=== PATIENT | male | born 1960 | race African-American/Black ===

== ENCOUNTER 2020-06-17 03:12 | Emergency (ER) | payer MEDICAID, OTHER ==
[~2020-06-17] VITALS: Ht 188 cm; Wt 94.7 kg
[~2020-06-17 03:12] MED LIST: ACYC-57 HOMEMEDPO; ASPI-496 HOMEMEDPO; CEPH-368 HOMEMEDPO; CLON0.2T10 HOMEMEDPO; HYDR-3240 HOMEMEDPO; IBUP200T49 HOMEMEDPO; METO-93 HOMEMEDPO; NITR0.4T41 HOMEMEDPO
[2020-06-17] MEDS ORDERED: SODIUM CHLORIDE FLUSH 10ML SYR IVF ONE (03:30)
[2020-06-17] MEDS ORDERED: ONDANSETRON 2MG/ML, 2ML IVPush ONE (03:30)
--- NOTE | 2020-06-17 03:30 | NUR ---
PT WIT C/O CHEST PAIN X A COUPLE WEEKS. SUBSTERNAL CHEST PRESSURE 6/10, ORTHOPNEA, +NAUSEA, DENIES SOB. HX OF NE. PT ATTACHED TO ALL MONITORS AND PIV PLACED.
[2020-06-17 03:53] LABS: BASOPHILS % (AUTO) 1 % (0-1); EOSINOPHILS % (AUTO) 3 % (1-7); LYMPHOCYTES % (AUTO) 30 % (22-44); MEAN CORPUSCULAR HEMOGLOBIN 33.3 pg (27.5-34.5); MEAN CORPUSCULAR HGB CONC 32.8 g/dL (33.2-36.2); MONOCYTES % (AUTO) 8 % (2-9); NEUTROPHILS % (AUTO) 59 % (42-75); PLATELET COUNT 178 x10^3/uL (130-400); RED BLOOD COUNT 4.06 x10^6/uL (4.38-5.82); RED CELL DISTRIBUTION WIDTH 15.8 % (9.4-14.8)
[2020-06-17 03:59] LABS: ALANINE AMINOTRANSFERASE 28 U/L (12-78); ALBUMIN 3.9 g/dL (3.4-5.0); ANION GAP 4 mmol/L (5-15); CALCIUM 8.7 mg/dL (8.5-10.1); CHLORIDE 107 mmol/L (98-107); CREATININE 0.96 mg/dL (0.7-1.3)
[2020-06-17 04:03] LABS: ALKALINE PHOSPHATASE 52 U/L (45-117); BILIRUBIN,TOTAL 1.6 mg/dL (0.2-1.0); TOTAL PROTEIN 7.3 g/dL (6.4-8.2); TROPONIN I < 0.015 ng/mL (0.000-0.045)
[2020-06-17 04:07] LABS: MD NO
[2020-06-17] MEDS ORDERED: ONDANSETRON 2MG/ML, 2ML ONE (04:23)
[2020-06-17 05:04] VITALS: BP 124/82
--- NOTE | 2020-06-17 05:04 | NUR ---
pt resting on gurney. respirations even and unlabored. eyes closed, snoring.
== END 2020-06-17 06:34 | disposition home or self-care (01) ==
LOC: ED 05:40
DX: R07.89 Other chest pain (principal); R06.00 Dyspnea, unspecified; R60.0 Localized edema; I25.2 Old myocardial infarction; I10 Essential (primary) hypertension
CPT/HCPCS: 36415; 71045; 80053; 83880; 84484; 85025; 93005; 93970; 96374; 99285; J2405